=== PATIENT | female | born 2000 | race Caucasian/White ===

== ENCOUNTER 2025-08-11 07:43 | Inpatient (IN) ==
[2025-08-11] MEDS ORDERED: OXYTOCIN 30 UNITS/NSS 30 UNITS/500 ML BAG IV PRN (07:49)
[2025-08-11 08:11] LABS: Hematocrit (blood only) 35.7 % (37.0-47.0); Hemoglobin 11.9 g/dL (12.0-16.0); Mean Corpuscular Hemoglobin 26.9 pg (25.0-34.0); Mean Corpuscular Volume 80.6 fL (80.0-100.0); Platelet Count 282 K/uL (130-400); RDW Standard Deviation 42.5 fL (36.4-46.3); Red Blood Count 4.43 M/uL (4.20-5.40); White Blood Count 15.59 K/ul (4.8-10.8)
[2025-08-11] MEDS: LACTATED RINGER'S 1,000 ML IV PRN (08:20)
[2025-08-11] MEDS: PENICILLIN GK 6 MU in DEXTROSE 5% 250 ML IV STA (08:20)
--- NOTE | 2025-08-11 08:33 | History & Physical Report ---
Date of Service August 11, 2025 Assessment & Plan (1) Encounter for induction of labor: (2) Chronic hypertension: (3) Insulin controlled gestational diabetes mellitus (GDM) during : (4) Group B streptococcal infection during : Plan Patient is a 25 y/o presenting today for induction of labor. was complicated by GDM on insulin, CHTN, GBS(+), and HSV infection. Rh(+). Rubella equivocal barillas bulb placed last night pitocin pencillin for GBS(+) AROM when indicated epidural at patient's preference BG checks q1h rubella equivocal - plan for vaccination anticipate Admission and Anticipated Discharge Date Admission Date: August 11, 2025 History of Present Illness Chief Complaint: induction of labor Primary Care Provider: Spencer Virgen MD Isa Sanches is a 25 y/o at 38w 6d with an DARION 08/19/25 as determined by ultrasound who is here for induction of labor. Her was complicated by GDM on insulin, CHTN, GBS(+), and HSV infection. + contractions ; good movement External FHT and external uterine monitors used; Category I tracing; moderate FHT variability. Had regular appointments with OB. OB Labs: Blood Type O Positive 01/06/25 Antibody Screen NEGATIVE 01/06/25 Hgb 11.5 g/dL (12.0-16.0) L 07/23/25 Hct 34.2 % (37.0-47.0) L 07/23/25 MCV 81.0 fL (80.0-100.0) 07/23/25 Plt Count 296 K/uL (130-400) 07/23/25 Rubella IgG Antibody Equivocal (Immune) L 01/06/25 Treponema pallidum Ab Negative (Negative) 05/29/25 Hep Bs Antigen Negative (Negative) 01/06/25 Hepatitis C Antibody Negative (Negative) 01/06/25 HIV 1&2 Ab/P24 Ag 4thGn Negative (Negative) 01/06/25 Glucose 1 Hr 50 gm 159 mg/dl (70-130) H 03/06/25 Maternal Serum AFP 19.7 ng/mL 03/06/25 OB Optional Labs: Chlamydia trachomatis RNA Not Detected (NotDetected) 01/06/25 Neisseria gonorrhoeae RNA Not Detected (NotDetected) 01/06/25 Alpha Fetoprotein Triple Screen SEE NOTE 03/06/25 ROS: Denies fever/chills Denies shortness of breath, difficulty breathing, chest pain, palpitations, chest pressure. Denies breast pain. Denies dysuria. Denies headache or changes in vision. Allergies Allergy/AdvReac Type Severity Reaction Status Date / Time No Known Allergies Allergy Verified 08/10/25 13:10 Home Medications Medication Instructions Recorded Confirmed Type rffsonxz-hom-Xh-FA 1 mg 1 tab PO DAILY 12/30/24 08/11/25 History tablet acetone (urine) test (Ketone Urine #50 ea 03/30/25 08/10/25 Rx Test strips) blood sugar diagnostic (Accu-Chek #150 ea 03/30/25 08/10/25 Rx Guide test strips) blood-glucose meter (Accu-Chek #1 ea 03/30/25 08/10/25 Rx Guide Glucose Meter) lancets (Accu-Chek Softclix #100 ea 03/30/25 08/10/25 Rx Lancets) lancets 28 gauge (Easy Touch #100 ea 04/01/25 08/10/25 Rx Safety Lancets) insulin lispro 100 unit/mL 3 unit (0.03 mL) subcut TID #15 mL 05/12/25 08/11/25 Rx subcutaneous pen (Humalog KwikPen (U-100) Insulin) pen needle, diabetic 32 gauge x #100 ea 05/12/25 08/10/25 Rx 5/32" valacyclovir 500 mg tablet 500 mg PO BID #60 tabs 05/29/25 08/11/25 Rx acetaminophen 325 mg tablet 650 mg PO QID PRN Headache 08/11/25 08/11/25 History (Tylenol) aspirin 1 tab PO DAILY 08/11/25 08/11/25 History calcium carbonate 500 mg PO Q6 PRN Heartburn 08/11/25 08/11/25 History Past Med/Surg History Problem List (Updated 08/11/25 @ 09:43 by Rita Montano MD, FACOG) Encounter for induction of labor Group B streptococcal infection during Insulin controlled gestational diabetes mellitus (GDM) during Chronic hypertension Gestational diabetes Supervision of normal intrauterine in primigravida Surgical History S/P tonsillectomy Family History Other Cancer Diabetes Social History Smoking Status: Never smoker Do You Dip or Chew Tobacco: No; Hx Alcohol Use: No Hx Substance Use: No Preferred Language: [place] Communication Ability: Effective Retail Loss Prevention Officer Required: No Beliefs That Will Affect Care: None marital status: Single marital status details: Kendall (26) [phone] Current Living Situation: Significant Other Current Living Situation Comment: Patient lives with fob and 3 dogs. current occupational status: unemployed Feels Safe at Home: Yes Safety Concerns: Feels Safe At This Time Review of Systems Review of Systems: as above Physical Exam Physical Exam: General: Alert, oriented. No acute distress. Cardiac: Regular rate and rhythm, no murmurs/rubs/gallops. Respiratory: Clear to auscultation bilaterally a/p, no wheezes/rales rhonchi. No increased work of breathing. Symmetrical chest rise. No respiratory distress. Abdomen: gravid, soft, normal to inspection. Pelvic: Dilation 0.5 cm; Effacement 50; Station -[address] Koch Lower Extremities: No lower extremity edema or swelling. No deep calf pain. Cas's negative bilaterally Results & Data Results & Data Vital Signs (Past 12 Hours) Vital Signs Pulse BP 08/11/25 07:52 102 H 139/82 Supervising Physician Co-Signing Physician Notes 25yo at 38+wks with chtn for planned induction. She did have barillas ripening balloon last pm, has not fallen out. No rom, vb. No ctx. also c/b GDM on insulin, takes regular with meals, did eat this am and took 8u reg, last bsg 82 in am before meal per pt. Pt is gbs pos, ri, rh pos. SVE balloon in vagina cx 3-4/50/-2, efw 7-8#, pit at 1, fhts categ 1, ctx irreg. Plan arom with regular pattern, pcn for gbs pos, epidural when desires. fhts categ 1. c/w pit. bsgs q2hr in active labor.
[2025-08-11] MEDS: OXYTOCIN 30 UNITS/NSS 30 UNITS/500 ML BAG IV PRN (09:30)
[2025-08-11] MEDS ORDERED: LIDOCAINE 2% MPF LOCAL 5 ML VIAL EPI PRN (11:43)
[2025-08-11] MEDS ORDERED: NALOXONE HCL 0.4 MG/1 ML VIAL/CARP IV PRN (11:43)
[2025-08-11] MEDS ORDERED: ROPIVACAINE 0.5% PF 5 MG/ML 20 ML VIAL EPI PRN (11:43)
[2025-08-11] MEDS ORDERED: diphenhydrAMINE 50 MG/ML VIAL IV PRN (11:43)
[2025-08-11] MEDS ORDERED: NALBUPHINE HCL INJ 10 MG/ML AMP IV PRN (11:43)
[2025-08-11] MEDS ORDERED: NALOXONE HCL 1 MG in SODIUM CHLORIDE 0.9% 1,000 ML IV PRN (11:43)
--- NOTE | 2025-08-11 11:43 | Anesthesiology Consultation ---
Date of Service August 11, 2025 Assessment & Plan Chart Review Chart Review: Acceptable Risk for Labor Epidural Consults Requested medical & cardiac Pulmonary ASA ASA2 Proposed Anesthesia Anesthesia Type: Labor Epidural History Height/Weight Height: 5 ft 1 in Weight: 84.776 kg Allergies Allergy/AdvReac Type Severity Reaction Status Date / Time No Known Allergies Allergy Verified 08/10/25 13:10 Medications Home Medications Medication Instructions Recorded Confirmed Last Taken egllllow-gqk-Ab-FA 1 mg 1 tab PO DAILY 12/30/24 08/11/25 08/10/25 22:00 tablet acetone (urine) test (Ketone Urine #50 ea 03/30/25 08/10/25 Unknown Test strips) blood sugar diagnostic (Accu-Chek #150 ea 03/30/25 08/10/25 Unknown Guide test strips) blood-glucose meter (Accu-Chek #1 ea 03/30/25 08/10/25 Unknown Guide Glucose Meter) lancets (Accu-Chek Softclix #100 ea 03/30/25 08/10/25 Unknown Lancets) lancets 28 gauge (Easy Touch #100 ea 04/01/25 08/10/25 Unknown Safety Lancets) insulin lispro 100 unit/mL 3 unit (0.03 mL) subcut TID #15 mL 05/12/25 08/11/25 08/11/25 05:30 subcutaneous pen (Humalog KwikPen (U-100) Insulin) pen needle, diabetic 32 gauge x #100 ea 05/12/25 08/10/25 Unknown 32" valacyclovir 500 mg tablet 500 mg PO BID #60 tabs 05/29/25 08/11/25 08/10/25 22:00 acetaminophen 325 mg tablet 650 mg PO QID PRN Headache 08/11/25 08/11/25 08/10/25 20:00 (Tylenol) aspirin 1 tab PO DAILY 08/11/25 08/11/25 08/10/25 22:00 calcium carbonate 500 mg PO Q6 PRN Heartburn 08/11/25 08/11/25 08/10/25 22:30 Active Medications Generic Name Dose Route Start Last Admin Trade Name Freq PRN Reason Stop Dose Admin Oxytocin 30 units in 500 mls @ 7 mls/hr 08/11/25 07:49 08/11/25 11:00 Pitocin 30 Units/Nss IV 08/13/25 07:48 0.42 units/hr .Q24H PRN 7 mls/hr Labor Induction/Augmentation Titration Protocol 0.42 UNITS/HR Lactated Ringer's 1,000 mls @ 125 mls/hr 08/11/25 07:49 08/11/25 08:20 Lr IV 08/13/25 07:48 125 mls/hr .Q8H PRN Administration L&D Protocol Protocol Past Family History Family History Other Cancer Diabetes Past Surgical History Surgical History S/P tonsillectomy Social History Smoking Status: Never smoker Do You Dip or Chew Tobacco: No Hx Alcohol Use: No Hx Substance Use: No substance use type: does not use Physical Exam Vital Signs Last Vital Signs Temp 36.6 C 08/11/25 08:15 Pulse 94 H 08/11/25 11:34 Resp 18 08/11/25 08:15 BP 130/77 08/11/25 11:34 Testing Laboratory Results 08/11/25 07:58 08/11/25 08/11/25 10:32 08:29 POC Glucose 76 80
[2025-08-11] MEDS: PENICILLIN GK 3 MU in DEXTROSE 5% 100 ML IV PRN (12:00)
[2025-08-11] MEDS: LIDOCAINE 2%/EPINEPHRINE 1:200,000 20 ML PF ONE ×3 (12:02→22:23)
[2025-08-11] MEDS: fentANYL 2 MCG/ML BUPIVacaine 0.125%-NSS 100ML BAG ONE ×3 (12:05→22:24)
[2025-08-11] MEDS: SODIUM CHLORIDE 0.9% PF INJ 10 ML VIAL ONE ×3 (12:29→22:26)
[2025-08-11] MEDS: BUPIVACAINE 0.25% PF 30 ML VIAL EPI STA (12:29)
[2025-08-11] MEDS: BUPIVACAINE 0.25% PF 30 ML VIAL ONE ×3 (12:29→22:26)
[2025-08-11] MEDS: LIDOCAINE 2%/EPINEPHRINE 1:200,000 20 ML PF EPI STA (12:30)
[2025-08-11] MEDS: SODIUM CHLORIDE 0.9% PF INJ 10 ML VIAL EPI STA (12:33)
--- NOTE | 2025-08-11 12:33 | Labor Progress Brief Note ---
Date of Service August 11, 2025 Subjective now comfortable with epidural Assessment & Plan (1) Encounter for induction of labor: (2) Group B streptococcal infection during : (3) Chronic hypertension: (4) Insulin controlled gestational diabetes mellitus (GDM) during : Plan will see how arom, helps labor pattern, c/w pcn and pit. fhts categ 1. Admission and Anticipated Discharge Date Admission Date: August 11, 2025 Physical Exam Constitutional: WD/WN, vitals as above Genitourinary: Manual OB Exam: + cervical dilation (3-4cm), + cervical effacement 50%, + station -2 and + amniotic fluid (arom) clear OB Exam Monitor Tracing: + external FHT monitor used, + external uterine monitor used (q3), + category I and + normal FHT variability Results & Data Vital Signs (Past 12 Hours) Vital Signs Temp Pulse Resp BP Pulse Ox 08/11/25 12:28 89 08/11/25 12:28 113/70 08/11/25 12:27 100 08/11/25 12:27 90 08/11/25 12:22 100 08/11/25 12:22 94 H 08/11/25 12:17 100 08/11/25 12:17 94 H 08/11/25 12:13 104 H 08/11/25 12:13 138/89 08/11/25 12:12 100 08/11/25 12:12 94 H 08/11/25 12:07 100 08/11/25 12:07 100 H 08/11/25 12:07 146/88 H 08/11/25 12:02 100 08/11/25 12:02 100 H 08/11/25 12:02 137/85 08/11/25 11:57 100 08/11/25 11:57 102 H 08/11/25 11:57 145/91 H 08/11/25 11:52 100 08/11/25 11:52 100 H 08/11/25 11:47 100 08/11/25 11:47 107 H 08/11/25 11:34 94 H 08/11/25 11:34 130/77 08/11/25 10:30 88 08/11/25 10:30 133/76 08/11/25 09:31 93 H 08/11/25 09:31 128/82 08/11/25 08:15 97.9 F 102 H 18 139/82 08/11/25 07:52 97.9 F 102 H 16 139/82 Coding Level of Care Code None Diagnoses Encounter for induction of labor Z34.90 Group B streptococcal infection during O98.819; B95.1 Chronic hypertension I10 Insulin controlled gestational diabetes mellitus (GDM) during O24.414
[2025-08-11] MEDS ORDERED: NURSING L&D Epidural Breakthrough Pain Update ONE ×2 (14:38→16:08)
[2025-08-11] MEDS ORDERED: LIDOCAINE 2%/EPINEPHRINE 1:200,000 20 ML PF ONE (16:03)
--- NOTE | 2025-08-11 16:13 | Anesthesia Procedure Note ---
Date of Service August 11, 2025 Anesthesia Epidural Re-Dose Vital Signs Temp Pulse Resp BP Pulse Ox 36.9 C 101 H 18 141/95 H 100 08/11/25 14:45 08/11/25 16:10 08/11/25 14:45 08/11/25 16:10 08/11/25 16:07 Notes Pain Intensity: 0 Dilatation (cm): 3.0 Effacement (%): 50 Called by nursing to evaluate epidural as the patient is having increased pain. The epidural was re-dosed with the following medications (all medications via epidural route) after negative aspiration of the epidural catheter for CSF/HEME. 2% Lidocaine via epidural After Epidural Re-Dose Mental Status: alert / awake / arousable and participated in evaluation Pain: see Notes below Airway Patency, RR, SpO2: stable & adequate BP & HR: stable & adequate Additional Notes: will replace if no improvement.
[2025-08-11] MEDS: fentANYL 2 MCG/ML BUPIVacaine 0.125%-NSS 100ML BAG EPI PRN (17:40)
[2025-08-11] MEDS: BUTORPHANOL TARTRATE 1 MG/ML VIAL IV ONE (21:38)
--- NOTE | 2025-08-11 21:51 | Labor Progress Brief Note ---
Date of Service August 11, 2025 Subjective late entry, seen about 1hr ago. pt not comfortable, epidural not working, apparently pt uncertain how to proceed, was given options by anesthesia. Assessment & Plan (1) 38 weeks gestation of : (2) Chronic hypertension: (3) Encounter for induction of labor: (4) Insulin controlled gestational diabetes mellitus (GDM) during : (5) Group B streptococcal infection during : Plan Discussed with pt need to evaluate adequacy of labor pattern to guide pitocin and to determine if cx expected to progress. She is in pain but reluctant to have epidural replaced as suggested by anesth for several reasons. we talked thru those reasons as well as her alternatives. she wants to try to for normal delivery and at this point nothing to say this will not happen and so ultimately feels needs to try new epidural. discussed option to stop pit for 30min and restart at 1/2 in order to allow ctx to space to aid in her positioning. Also stadol 1mg now to help her relax as well as she is nervous about another epidural. ultimately she agrees to both. fhts categ 1. she does want to proceed in this manner. anesthesia ready to retry epidural. Admission and Anticipated Discharge Date Admission Date: August 11, 2025 Physical Exam Constitutional: WD/WN, vitals as above Genitourinary: Manual OB Exam: + cervical dilation 5 cm, + cervical effacement (75%) and + station -1 OB Exam Monitor Tracing: + external FHT monitor used, + external uterine monitor used, + intra-uterine pressure catheter used (IUPC placed, mvu's adequate, pit at 27), + category I and + normal FHT variability Results & Data Vital Signs (Past 12 Hours) Vital Signs Temp Pulse Resp BP Pulse Ox 08/11/25 21:42 97 08/11/25 21:42 111 H 08/11/25 21:42 136/81 08/11/25 21:37 99 08/11/25 21:37 97 H 08/11/25 21:32 98 08/11/25 21:32 100 H 08/11/25 21:27 98 08/11/25 21:27 103 H 08/11/25 21:27 107 H 08/11/25 21:27 146/78 H 08/11/25 21:22 98 08/11/25 21:22 98 H 08/11/25 21:17 98 08/11/25 21:17 104 H 08/11/25 21:13 105 H 08/11/25 21:13 149/95 H 08/11/25 21:12 98 08/11/25 21:12 103 H 08/11/25 21:07 98 08/11/25 21:07 92 H 08/11/25 21:02 99 08/11/25 21:02 104 H 08/11/25 20:57 98 08/11/25 20:57 101 H 08/11/25 20:57 105 H 08/11/25 20:57 141/84 H 08/11/25 20:52 98 08/11/25 20:52 92 H 08/11/25 20:47 98 08/11/25 20:47 107 H 08/11/25 20:42 99 08/11/25 20:42 101 H 08/11/25 20:42 112 H 08/11/25 20:42 137/81 08/11/25 20:38 92 08/11/25 20:38 118 H 08/11/25 20:37 97 08/11/25 20:37 124 H 08/11/25 20:32 99 08/11/25 20:32 90 08/11/25 20:27 99 08/11/25 20:27 93 H 08/11/25 20:27 98 H 08/11/25 20:27 122/73 08/11/25 20:22 97 08/11/25 20:22 95 H 08/11/25 20:17 100 08/11/25 20:17 96 H 08/11/25 20:12 100 08/11/25 20:12 88 08/11/25 20:12 127/93 08/11/25 20:07 100 08/11/25 20:07 104 H 08/11/25 20:02 98 08/11/25 20:02 89 08/11/25 19:57 99 08/11/25 19:57 98 H 08/11/25 19:57 137/91 08/11/25 19:52 98 08/11/25 19:52 94 H 08/11/25 19:47 98 08/11/25 19:47 95 H 08/11/25 19:44 98 H 08/11/25 19:44 125/91 08/11/25 19:42 99 08/11/25 19:42 97 H 08/11/25 19:37 100 08/11/25 19:37 103 H 08/11/25 19:32 98 08/11/25 19:32 93 H 08/11/25 19:27 97 08/11/25 19:27 92 H 08/11/25 19:27 130/76 08/11/25 19:22 98 08/11/25 19:22 83 08/11/25 19:21 98.4 F 18 08/11/25 19:17 98 08/11/25 19:17 92 H 08/11/25 19:12 98 08/11/25 19:12 91 H 08/11/25 19:12 91 H 08/11/25 19:12 136/83 08/11/25 19:07 99 08/11/25 19:07 90 08/11/25 19:02 99 08/11/25 19:02 91 H 08/11/25 18:58 98 H 08/11/25 18:58 155/85 H 08/11/25 18:57 99 08/11/25 18:57 91 H 08/11/25 18:52 98 08/11/25 18:52 91 H 08/11/25 18:47 98 08/11/25 18:47 98 H 08/11/25 18:42 98 08/11/25 18:42 96 H 08/11/25 18:37 96 08/11/25 18:37 109 H 08/11/25 18:32 100 08/11/25 18:32 98 H 08/11/25 18:29 97 H 08/11/25 18:29 119/69 08/11/25 18:27 99 08/11/25 18:27 96 H 08/11/25 18:22 98 08/11/25 18:22 90 08/11/25 18:17 99 08/11/25 18:17 92 H 08/11/25 18:12 100 08/11/25 18:12 86 08/11/25 18:12 120/73 08/11/25 18:07 100 08/11/25 18:07 95 H 08/11/25 18:02 99 08/11/25 18:02 91 H 08/11/25 17:59 96 H 08/11/25 17:59 128/73 08/11/25 17:57 98 08/11/25 17:57 91 H 08/11/25 17:52 98 08/11/25 17:52 95 H 08/11/25 17:47 99 08/11/25 17:47 85 08/11/25 17:44 87 08/11/25 17:44 109/63 08/11/25 17:42 99 08/11/25 17:42 78 08/11/25 17:37 100 08/11/25 17:37 88 08/11/25 17:32 99 08/11/25 17:32 84 08/11/25 17:27 100 08/11/25 17:27 90 08/11/25 17:27 90 08/11/25 17:27 114/71 08/11/25 17:22 100 08/11/25 17:22 88 08/11/25 17:17 100 08/11/25 17:17 86 08/11/25 17:13 90 08/11/25 17:13 106/65 08/11/25 17:12 100 08/11/25 17:12 93 H 08/11/25 17:07 100 08/11/25 17:07 86 08/11/25 17:02 100 08/11/25 17:02 91 H 08/11/25 16:57 100 08/11/25 16:57 95 H 08/11/25 16:57 96 H 08/11/25 16:57 120/60 08/11/25 16:52 100 08/11/25 16:52 91 H 08/11/25 16:47 100 08/11/25 16:47 92 H 08/11/25 16:42 99 08/11/25 16:42 86 08/11/25 16:42 86 08/11/25 16:42 110/62 08/11/25 16:37 98 08/11/25 16:37 85 08/11/25 16:32 97 08/11/25 16:32 91 H 08/11/25 16:27 99 08/11/25 16:27 88 08/11/25 16:27 121/79 08/11/25 16:22 98 08/11/25 16:22 91 H 08/11/25 16:21 90 08/11/25 16:21 134/74 08/11/25 16:17 100 08/11/25 16:17 89 08/11/25 16:16 87 08/11/25 16:16 147/87 H 08/11/25 16:12 100 08/11/25 16:12 98 H 08/11/25 16:10 101 H 08/11/25 16:10 141/95 H 08/11/25 16:08 94 H 08/11/25 16:08 137/80 08/11/25 16:07 100 08/11/25 16:07 84 08/11/25 16:07 90 08/11/25 16:07 149/89 H 08/11/25 16:02 100 08/11/25 16:02 89 08/11/25 15:59 81 08/11/25 15:59 155/90 H 08/11/25 15:57 99 08/11/25 15:57 98 H 08/11/25 15:52 100 08/11/25 15:52 102 H 08/11/25 15:52 101 H 08/11/25 15:52 164/95 H 08/11/25 15:47 100 08/11/25 15:47 93 H 08/11/25 15:44 95 H 08/11/25 15:44 186/90 H 08/11/25 15:42 100 08/11/25 15:42 96 H 08/11/25 15:37 100 08/11/25 15:37 93 H 08/11/25 15:32 100 08/11/25 15:32 98 H 08/11/25 15:28 93 H 08/11/25 15:28 143/84 H 08/11/25 15:27 100 08/11/25 15:27 94 H 08/11/25 15:22 99 08/11/25 15:22 91 H 08/11/25 15:17 98 08/11/25 15:17 93 H 08/11/25 15:14 88 08/11/25 15:14 136/80 08/11/25 15:12 98 08/11/25 15:12 86 08/11/25 15:07 99 08/11/25 15:07 91 H 08/11/25 15:02 100 08/11/25 15:02 86 08/11/25 14:59 100 H 08/11/25 14:59 133/88 08/11/25 14:57 99 08/11/25 14:57 91 H 08/11/25 14:52 99 08/11/25 14:52 95 H 08/11/25 14:47 97 08/11/25 14:47 89 08/11/25 14:45 18 08/11/25 14:45 98.4 F 18 08/11/25 14:45 87 08/11/25 14:45 134/73 08/11/25 14:42 98 08/11/25 14:42 78 08/11/25 14:37 99 08/11/25 14:37 79 08/11/25 14:32 99 08/11/25 14:32 88 08/11/25 14:28 85 08/11/25 14:28 125/73 08/11/25 14:27 100 08/11/25 14:27 82 08/11/25 14:22 99 08/11/25 14:22 89 08/11/25 14:17 98 08/11/25 14:17 84 08/11/25 14:15 81 08/11/25 14:15 120/72 08/11/25 14:12 98 08/11/25 14:12 83 08/11/25 14:07 98 08/11/25 14:07 80 08/11/25 14:02 98 08/11/25 14:02 80 08/11/25 13:59 80 08/11/25 13:59 128/73 08/11/25 13:57 98 08/11/25 13:57 82 08/11/25 13:52 99 08/11/25 13:52 79 08/11/25 13:47 99 08/11/25 13:47 85 08/11/25 13:44 84 08/11/25 13:44 126/78 08/11/25 13:42 100 08/11/25 13:42 89 08/11/25 13:37 100 08/11/25 13:37 79 08/11/25 13:35 18 08/11/25 13:35 98.4 F 18 08/11/25 13:32 100 08/11/25 13:32 77 08/11/25 13:28 83 08/11/25 13:28 137/84 08/11/25 13:27 100 08/11/25 13:27 78 08/11/25 13:22 100 08/11/25 13:22 79 08/11/25 13:17 100 08/11/25 13:17 79 08/11/25 13:13 81 08/11/25 13:13 105/63 08/11/25 13:12 100 08/11/25 13:12 85 08/11/25 13:07 100 08/11/25 13:07 82 08/11/25 13:02 100 08/11/25 13:02 89 08/11/25 12:58 88 08/11/25 12:58 110/68 08/11/25 12:57 100 08/11/25 12:57 87 08/11/25 12:52 100 08/11/25 12:52 85 08/11/25 12:47 100 08/11/25 12:47 85 08/11/25 12:44 85 08/11/25 12:44 114/75 08/11/25 12:42 100 08/11/25 12:42 86 08/11/25 12:37 100 08/11/25 12:37 83 08/11/25 12:32 100 08/11/25 12:32 88 08/11/25 12:28 89 08/11/25 12:28 113/70 08/11/25 12:27 16 08/11/25 12:27 98.4 F 16 08/11/25 12:27 100 08/11/25 12:27 90 08/11/25 12:22 100 08/11/25 12:22 94 H 08/11/25 12:17 100 08/11/25 12:17 94 H 08/11/25 12:13 104 H 08/11/25 12:13 138/89 08/11/25 12:12 100 08/11/25 12:12 94 H 08/11/25 12:07 100 08/11/25 12:07 100 H 08/11/25 12:07 146/88 H 08/11/25 12:02 100 08/11/25 12:02 100 H 08/11/25 12:02 137/85 08/11/25 11:57 100 08/11/25 11:57 102 H 08/11/25 11:57 145/91 H 08/11/25 11:52 100 08/11/25 11:52 100 H 08/11/25 11:47 100 08/11/25 11:47 107 H 08/11/25 11:34 94 H 08/11/25 11:34 130/77 08/11/25 10:30 88 08/11/25 10:30 133/76 Coding Level of Care Code None Diagnoses 38 weeks gestation of Z3A.38 Chronic hypertension I10 Encounter for induction of labor Z34.90 Insulin controlled gestational diabetes mellitus (GDM) during O24.414 Group B streptococcal infection during O98.819; B95.1
--- NOTE | 2025-08-11 22:02 | Communication Note ---
Date of Service: August 11, 2025 redo epidural catheter
[2025-08-11] MEDS: BUTORPHANOL TARTRATE 1 MG/ML VIAL ONE (22:28)
[2025-08-12] MEDS ORDERED: DexMEDEtomidine HCL IV 100 MCG/ML VIAL IV ONE (03:52)
[2025-08-12] MEDS ORDERED: SODIUM CHLORIDE 0.9% PF INJ 10 ML VIAL ONE (03:52)
[2025-08-12] MEDS ORDERED: LIDOCAINE 2%/EPINEPHRINE 1:200,000 20 ML PF ONE (04:02)
--- NOTE | 2025-08-12 04:20 | Anesthesia Procedure Note ---
Date of Service August 12, 2025 Anesthesia Epidural Re-Dose Vital Signs Temp Pulse Resp BP Pulse Ox 37.1 C 93 H 18 102/56 L 95 08/12/25 01:45 08/12/25 04:15 08/12/25 00:00 08/12/25 04:15 08/12/25 04:12 Notes Pain Intensity: 10 Dilatation (cm): 6.0 Effacement (%): 70 Called by nursing to evaluate epidural as the patient is having increased pain L>R. Epidural catheter remains at depth of placement. The epidural was re-dosed with the following medications (all medications via epidural route) after negative aspiration of the epidural catheter for CSF/HEME. 3ml 2% Lidocaine and 20mcg precedex via epidural After Epidural Re-Dose Mental Status: alert / awake / arousable and participated in evaluation Pain: improving with treatment Airway Patency, RR, SpO2: stable & adequate BP & HR: stable & adequate
[2025-08-12] MEDS ORDERED: NURSING L&D Epidural Breakthrough Pain Update ONE (05:24)
[2025-08-12] MEDS: SODIUM CHLORIDE 0.9% PF INJ 10 ML VIAL EPI PRN (07:14)
[2025-08-12] MEDS: BUPIVACAINE 0.25% PF 30 ML VIAL EPI PRN (07:14)
--- NOTE | 2025-08-12 07:22 | Labor Progress Brief Note ---
Date of Service August 12, 2025 Subjective late entry, seen at 640am. comfortable with epidural, got some sleep. feels pressure. barilals in place. Assessment & Plan (1) 38 weeks gestation of : (2) Chronic hypertension: (3) Encounter for induction of labor: (4) Insulin controlled gestational diabetes mellitus (GDM) during : (5) Group B streptococcal infection during : Plan some cx change, now at pit max, given cx change would not adjust, but reeval for change ongoing. fhts categ 1. has received multiple dose of pcn for gbs pos. Admission and Anticipated Discharge Date Admission Date: August 11, 2025 Physical Exam Constitutional: WD/WN, vitals as above Genitourinary: Manual OB Exam: + cervical dilation 7 cm, + cervical effacement 100% and + station 0 OB Exam Monitor Tracing: + external FHT monitor used, + intra-uterine pressure catheter used (inadeq mvus, pit at 30, catheter in place), + category I and + normal FHT variability Results & Data Vital Signs (Past 12 Hours) Vital Signs Temp Pulse Resp BP Pulse Ox 08/12/25 07:17 102 H 99 08/12/25 07:16 22 08/12/25 07:16 98.4 F 22 08/12/25 07:12 101 H 98 08/12/25 07:07 97 H 97 08/12/25 07:05 100 H 128/73 08/12/25 07:02 100 H 97 08/12/25 06:57 95 H 98 08/12/25 06:52 96 H 97 08/12/25 06:49 98 H 129/67 08/12/25 06:47 100 H 98 08/12/25 06:42 92 H 98 08/12/25 06:37 94 H 98 08/12/25 06:33 85 119/69 08/12/25 06:32 83 98 08/12/25 06:27 110 H 99 08/12/25 06:22 105 H 99 08/12/25 06:19 99 H 132/81 08/12/25 06:17 102 H 98 08/12/25 06:12 98 H 97 08/12/25 06:07 87 98 08/12/25 06:06 18 08/12/25 06:06 98.4 F 18 08/12/25 06:04 101 H 133/77 08/12/25 06:02 98 H 98 08/12/25 05:57 80 95 08/12/25 05:52 81 95 08/12/25 05:49 83 102/53 L 08/12/25 05:47 80 96 08/12/25 05:42 81 96 08/12/25 05:37 74 96 08/12/25 05:33 85 94/52 L 08/12/25 05:32 82 96 08/12/25 05:27 78 96 08/12/25 05:22 90 96 08/12/25 05:18 80 92/47 L 08/12/25 05:17 80 95 08/12/25 05:12 80 95 08/12/25 05:07 80 95 08/12/25 05:04 82 96/46 L 08/12/25 05:02 78 95 08/12/25 04:57 80 95 08/12/25 04:52 80 95 08/12/25 04:47 80 96 08/12/25 04:46 83 96/46 L 08/12/25 04:42 85 92/53 L 96 08/12/25 04:38 89 93/50 L 08/12/25 04:37 81 96 08/12/25 04:32 95 08/12/25 04:32 85 08/12/25 04:32 86 91/52 L 08/12/25 04:27 89 96 08/12/25 04:26 93 H 96/55 L 08/12/25 04:22 90 96 08/12/25 04:21 90 95/62 L 08/12/25 04:17 91 H 96 08/12/25 04:15 93 H 102/56 L 08/12/25 04:14 97 H 106/55 L 08/12/25 04:12 96 H 95 08/12/25 04:09 102 H 119/74 08/12/25 04:07 100 H 96 08/12/25 04:02 103 H 97 08/12/25 03:57 96 H 98 08/12/25 03:54 98 H 144/78 H 08/12/25 03:52 99 H 98 08/12/25 03:47 103 H 97 08/12/25 03:42 101 H 97 08/12/25 03:40 100 H 126/80 08/12/25 03:37 93 H 97 08/12/25 03:32 98 H 96 08/12/25 03:27 99 H 100 08/12/25 03:25 104 H 140/68 08/12/25 03:22 102 H 95 08/12/25 03:19 99 H 94 08/12/25 03:17 104 H 99 08/12/25 03:12 103 H 98 08/12/25 03:11 106 H 93 08/12/25 03:09 101 H 127/86 08/12/25 03:07 103 H 97 08/12/25 03:02 92 H 98 08/12/25 02:57 92 H 98 08/12/25 02:55 105 H 140/86 08/12/25 02:52 100 H 98 08/12/25 02:47 102 H 98 08/12/25 02:42 100 H 98 08/12/25 02:39 107 H 146/91 H 08/12/25 02:37 103 H 99 08/12/25 02:32 104 H 99 08/12/25 02:27 99 H 97 08/12/25 02:25 103 H 137/88 08/12/25 02:22 105 H 99 08/12/25 02:17 95 H 99 08/12/25 02:12 100 H 97 08/12/25 02:09 100 H 128/85 08/12/25 02:07 98 H 97 08/12/25 02:02 101 H 98 08/12/25 01:57 91 H 97 08/12/25 01:55 96 H 122/80 08/12/25 01:52 92 H 96 08/12/25 01:47 91 H 96 08/12/25 01:45 98.8 F 08/12/25 01:42 97 H 96 08/12/25 01:39 97 H 120/70 08/12/25 01:37 95 H 97 08/12/25 01:32 91 H 97 08/12/25 01:27 86 97 08/12/25 01:22 88 97 08/12/25 01:17 94 H 97 08/12/25 01:12 93 H 97 08/12/25 01:07 90 96 08/12/25 01:02 87 97 08/12/25 00:57 78 95 08/12/25 00:55 83 104/55 L 08/12/25 00:54 85 94 08/12/25 00:52 82 95 08/12/25 00:47 86 95 08/12/25 00:42 90 96 08/12/25 00:39 93 H 124/68 08/12/25 00:37 93 H 98 08/12/25 00:32 94 H 98 08/12/25 00:27 92 H 98 08/12/25 00:24 95 H 131/83 08/12/25 00:22 103 H 98 08/12/25 00:17 86 98 08/12/25 00:12 90 97 08/12/25 00:09 93 H 117/76 08/12/25 00:07 93 H 98 08/12/25 00:02 86 97 08/12/25 00:00 18 08/12/25 00:00 98.1 F 18 08/11/25 23:57 98 08/11/25 23:57 89 08/11/25 23:54 94 H 08/11/25 23:54 106/70 08/11/25 23:52 97 08/11/25 23:52 91 H 08/11/25 23:47 97 08/11/25 23:47 82 08/11/25 23:42 98 08/11/25 23:42 89 08/11/25 23:39 96 H 08/11/25 23:39 110/70 08/11/25 23:37 97 08/11/25 23:37 89 08/11/25 23:32 97 08/11/25 23:32 90 08/11/25 23:27 97 08/11/25 23:27 91 H 08/11/25 23:24 93 H 08/11/25 23:24 107/67 08/11/25 23:22 97 08/11/25 23:22 85 08/11/25 23:17 97 08/11/25 23:17 86 08/11/25 23:12 97 08/11/25 23:12 93 H 08/11/25 23:10 97 H 08/11/25 23:10 111/74 08/11/25 23:07 98 08/11/25 23:07 92 H 08/11/25 23:02 98 08/11/25 23:02 104 H 12/02/25 22:57 100 08/11/25 22:57 101 H 08/11/25 22:54 105 H 08/11/25 22:54 115/73 08/11/25 22:52 100 08/11/25 22:52 103 H 08/11/25 22:47 98 08/11/25 22:47 106 H 08/11/25 22:42 99 08/11/25 22:42 112 H 08/11/25 22:40 107 H 08/11/25 22:40 112/75 08/11/25 22:37 98 08/11/25 22:37 101 H 08/11/25 22:32 97 08/11/25 22:32 101 H 08/11/25 22:27 97 08/11/25 22:27 97 H 08/11/25 22:22 97 08/11/25 22:22 97 H 08/11/25 22:22 115/64 08/11/25 22:20 100 H 08/11/25 22:20 118/67 08/11/25 22:18 98 H 08/11/25 22:18 121/70 08/11/25 22:17 97 08/11/25 22:17 97 H 08/11/25 22:17 106 H 08/11/25 22:17 119/69 08/11/25 22:14 99 H 08/11/25 22:14 133/72 08/11/25 22:12 98 08/11/25 22:12 102 H 08/11/25 22:12 121/69 08/11/25 22:10 103 H 08/11/25 22:10 134/67 08/11/25 22:08 104 H 08/11/25 22:08 137/69 08/11/25 22:07 97 08/11/25 22:07 108 H 08/11/25 22:06 105 H 08/11/25 22:06 123/65 08/11/25 22:05 109 H 08/11/25 22:05 127/69 08/11/25 22:03 111 H 08/11/25 22:03 111/65 08/11/25 22:02 98 08/11/25 22:02 102 H 08/11/25 22:01 109 H 08/11/25 22:01 124/61 08/11/25 21:58 112 H 08/11/25 21:58 134/77 08/11/25 21:57 95 08/11/25 21:57 112 H 08/11/25 21:57 111 H 08/11/25 21:57 134/70 08/11/25 21:54 110 H 08/11/25 21:54 136/71 08/11/25 21:52 97 08/11/25 21:52 103 H 08/11/25 21:47 96 08/11/25 21:47 98 H 08/11/25 21:42 97 08/11/25 21:42 111 H 08/11/25 21:42 136/81 08/11/25 21:37 99 08/11/25 21:37 97 H 08/11/25 21:32 98 08/11/25 21:32 100 H 08/11/25 21:27 98 08/11/25 21:27 103 H 08/11/25 21:27 107 H 08/11/25 21:27 146/78 H 08/11/25 21:22 98 08/11/25 21:22 98 H 08/11/25 21:17 98 08/11/25 21:17 104 H 08/11/25 21:13 105 H 08/11/25 21:13 149/95 H 08/11/25 21:12 98 08/11/25 21:12 103 H 08/11/25 21:07 98 08/11/25 21:07 92 H 08/11/25 21:02 99 08/11/25 21:02 104 H 08/11/25 20:57 98 08/11/25 20:57 101 H 08/11/25 20:57 105 H 08/11/25 20:57 141/84 H 08/11/25 20:52 98 08/11/25 20:52 92 H 08/11/25 20:47 98 08/11/25 20:47 107 H 08/11/25 20:42 99 08/11/25 20:42 101 H 08/11/25 20:42 112 H 08/11/25 20:42 137/81 08/11/25 20:38 92 08/11/25 20:38 118 H 08/11/25 20:37 97 08/11/25 20:37 124 H 08/11/25 20:32 99 08/11/25 20:32 90 08/11/25 20:27 99 08/11/25 20:27 93 H 08/11/25 20:27 98 H 08/11/25 20:27 122/73 08/11/25 20:22 97 08/11/25 20:22 95 H 08/11/25 20:17 100 08/11/25 20:17 96 H 08/11/25 20:12 100 08/11/25 20:12 88 08/11/25 20:12 127/93 08/11/25 20:07 100 08/11/25 20:07 104 H 08/11/25 20:02 98 08/11/25 20:02 89 08/11/25 19:57 99 08/11/25 19:57 98 H 08/11/25 19:57 137/91 08/11/25 19:52 98 08/11/25 19:52 94 H 08/11/25 19:47 98 08/11/25 19:47 95 H 08/11/25 19:44 98 H 08/11/25 19:44 125/91 08/11/25 19:42 99 08/11/25 19:42 97 H 08/11/25 19:37 100 08/11/25 19:37 103 H 08/11/25 19:32 98 08/11/25 19:32 93 H 08/11/25 19:27 97 08/11/25 19:27 92 H 08/11/25 19:27 130/76 08/11/25 19:22 98 08/11/25 19:22 83 08/11/25 19:21 98.4 F 18 Coding Level of Care Code None Diagnoses 38 weeks gestation of Z3A.38 Chronic hypertension I10 Encounter for induction of labor Z34.90 Insulin controlled gestational diabetes mellitus (GDM) during O24.414 Group B streptococcal infection during O98.819; B95.1
--- NOTE | 2025-08-12 07:23 | Anesthesia Procedure Note ---
Date of Service August 12, 2025 Anesthesia Epidural Re-Dose Vital Signs Temp Pulse Resp BP Pulse Ox 36.9 C 101 H 22 134/101 H 99 08/12/25 07:16 08/12/25 07:19 08/12/25 07:16 08/12/25 07:19 08/12/25 07:17 Notes Pain Intensity: 7 Dilatation (cm): 7.0 Effacement (%): 100 After Epidural Re-Dose Mental Status: alert / awake / arousable Pain: see Notes below Airway Patency, RR, SpO2: stable & adequate BP & HR: stable & adequate Additional Notes: @ 0714, pt epidural bolused w/ 12 ml 0.17% bupivacaine + 100 mcgs fentanyl using incremental aspiration and injections w/o incident.
--- NOTE | 2025-08-12 08:17 | Labor Progress Brief Note ---
Date of Service August 12, 2025 Subjective Patient feeling lots of pressure, urge to push. FHT Cat 1 [place] Q 2 SVE 10/100/+2 Will start pushing. Assessment & Plan Admission and Anticipated Discharge Date Admission Date: August 11, 2025 Results & Data Vital Signs (Past 12 Hours) Vital Signs Temp Pulse Resp BP Pulse Ox 08/12/25 08:12 106 H 100 08/12/25 08:07 108 H 100 08/12/25 08:03 100 H 139/96 08/12/25 08:02 110 H 100 08/12/25 07:57 103 H 99 08/12/25 07:52 104 H 99 08/12/25 07:47 110 H 99 08/12/25 07:42 105 H 99 08/12/25 07:37 102 H 100 08/12/25 07:34 93 H 132/87 08/12/25 07:32 99 H 97 08/12/25 07:27 98 H 100 08/12/25 07:25 100 H 135/87 08/12/25 07:22 97 08/12/25 07:22 96 H 08/12/25 07:22 96 H 131/83 08/12/25 07:19 101 H 134/101 H 08/12/25 07:17 102 H 99 08/12/25 07:16 22 08/12/25 07:16 36.9 C 22 08/12/25 07:12 101 H 98 08/12/25 07:07 97 H 97 08/12/25 07:05 100 H 128/73 08/12/25 07:02 100 H 97 08/12/25 06:57 95 H 98 08/12/25 06:52 96 H 97 08/12/25 06:49 98 H 129/67 08/12/25 06:47 100 H 98 08/12/25 06:42 92 H 98 08/12/25 06:37 94 H 98 08/12/25 06:33 85 119/69 08/12/25 06:32 83 98 08/12/25 06:27 110 H 99 08/12/25 06:22 105 H 99 08/12/25 06:19 99 H 132/81 08/12/25 06:17 102 H 98 08/12/25 06:12 98 H 97 08/12/25 06:07 87 98 08/12/25 06:06 18 08/12/25 06:06 36.9 C 18 08/12/25 06:04 101 H 133/77 08/12/25 06:02 98 H 98 08/12/25 05:57 80 95 08/12/25 05:52 81 95 08/12/25 05:49 83 102/53 L 08/12/25 05:47 80 96 08/12/25 05:42 81 96 08/12/25 05:37 74 96 08/12/25 05:33 85 94/52 L 08/12/25 05:32 82 96 08/12/25 05:27 78 96 08/12/25 05:22 90 96 08/12/25 05:18 80 92/47 L 08/12/25 05:17 80 95 08/12/25 05:12 80 95 08/12/25 05:07 80 95 08/12/25 05:04 82 96/46 L 08/12/25 05:02 78 95 08/12/25 04:57 80 95 08/12/25 04:52 80 95 08/12/25 04:47 80 96 08/12/25 04:46 83 96/46 L 08/12/25 04:42 85 92/53 L 96 08/12/25 04:38 89 93/50 L 08/12/25 04:37 81 96 08/12/25 04:32 95 08/12/25 04:32 85 08/12/25 04:32 86 91/52 L 08/12/25 04:27 89 96 08/12/25 04:26 93 H 96/55 L 08/12/25 04:22 90 96 08/12/25 04:21 90 95/62 L 08/12/25 04:17 91 H 96 08/12/25 04:15 93 H 102/56 L 08/12/25 04:14 97 H 106/55 L 08/12/25 04:12 96 H 95 08/12/25 04:09 102 H 119/74 08/12/25 04:07 100 H 96 08/12/25 04:02 103 H 97 08/12/25 03:57 96 H 98 08/12/25 03:54 98 H 144/78 H 08/12/25 03:52 99 H 98 08/12/25 03:47 103 H 97 08/12/25 03:42 101 H 97 08/12/25 03:40 100 H 126/80 08/12/25 03:37 93 H 97 08/12/25 03:32 98 H 96 08/12/25 03:27 99 H 100 08/12/25 03:25 104 H 140/68 08/12/25 03:22 102 H 95 08/12/25 03:19 99 H 94 08/12/25 03:17 104 H 99 08/12/25 03:12 103 H 98 08/12/25 03:11 106 H 93 08/12/25 03:09 101 H 127/86 08/12/25 03:07 103 H 97 08/12/25 03:02 92 H 98 08/12/25 02:57 92 H 98 08/12/25 02:55 105 H 140/86 08/12/25 02:52 100 H 98 08/12/25 02:47 102 H 98 08/12/25 02:42 100 H 98 08/12/25 02:39 107 H 146/91 H 08/12/25 02:37 103 H 99 08/12/25 02:32 104 H 99 08/12/25 02:27 99 H 97 08/12/25 02:25 103 H 137/88 08/12/25 02:22 105 H 99 08/12/25 02:17 95 H 99 08/12/25 02:12 100 H 97 08/12/25 02:09 100 H 128/85 08/12/25 02:07 98 H 97 08/12/25 02:02 101 H 98 08/12/25 01:57 91 H 97 08/12/25 01:55 96 H 122/80 08/12/25 01:52 92 H 96 08/12/25 01:47 91 H 96 08/12/25 01:45 37.1 C 08/12/25 01:42 97 H 96 08/12/25 01:39 97 H 120/70 08/12/25 01:37 95 H 97 08/12/25 01:32 91 H 97 08/12/25 01:27 86 97 08/12/25 01:22 88 97 08/12/25 01:17 94 H 97 08/12/25 01:12 93 H 97 08/12/25 01:07 90 96 08/12/25 01:02 87 97 08/12/25 00:57 78 95 08/12/25 00:55 83 104/55 L 08/12/25 00:54 85 94 08/12/25 00:52 82 95 08/12/25 00:47 86 95 08/12/25 00:42 90 96 08/12/25 00:39 93 H 124/68 08/12/25 00:37 93 H 98 08/12/25 00:32 94 H 98 08/12/25 00:27 92 H 98 08/12/25 00:24 95 H 131/83 08/12/25 00:22 103 H 98 08/12/25 00:17 86 98 08/12/25 00:12 90 97 08/12/25 00:09 93 H 117/76 08/12/25 00:07 93 H 98 08/12/25 00:02 86 97 08/12/25 00:00 18 08/12/25 00:00 36.7 C 18 08/11/25 23:57 98 08/11/25 23:57 89 08/11/25 23:54 94 H 08/11/25 23:54 106/70 08/11/25 23:52 97 08/11/25 23:52 91 H 08/11/25 23:47 97 08/11/25 23:47 82 08/11/25 23:42 98 08/11/25 23:42 89 08/11/25 23:39 96 H 08/11/25 23:39 110/70 08/11/25 23:37 97 08/11/25 23:37 89 08/11/25 23:32 97 08/11/25 23:32 90 08/11/25 23:27 97 08/11/25 23:27 91 H 08/11/25 23:24 93 H 08/11/25 23:24 107/67 08/11/25 23:22 97 08/11/25 23:22 85 08/11/25 23:17 97 08/11/25 23:17 86 08/11/25 23:12 97 08/11/25 23:12 93 H 08/11/25 23:10 97 H 08/11/25 23:10 111/74 08/11/25 23:07 98 08/11/25 23:07 92 H 08/11/25 23:02 98 08/11/25 23:02 104 H 08/11/25 22:57 100 08/11/25 22:57 101 H 08/11/25 22:54 105 H 08/11/25 22:54 115/73 08/11/25 22:52 100 08/11/25 22:52 103 H 08/11/25 22:47 98 08/11/25 22:47 106 H 08/11/25 22:42 99 08/11/25 22:42 112 H 08/11/25 22:40 107 H 08/11/25 22:40 112/75 08/11/25 22:37 98 08/11/25 22:37 101 H 08/11/25 22:32 97 08/11/25 22:32 101 H 08/11/25 22:27 97 08/11/25 22:27 97 H 08/11/25 22:22 97 08/11/25 22:22 97 H 08/11/25 22:22 115/64 08/11/25 22:20 100 H 08/11/25 22:20 118/67 08/11/25 22:18 98 H 08/11/25 22:18 121/70 08/11/25 22:17 97 08/11/25 22:17 97 H 08/11/25 22:17 106 H 08/11/25 22:17 119/69 08/11/25 22:14 99 H 08/11/25 22:14 133/72 08/11/25 22:12 98 08/11/25 22:12 102 H 08/11/25 22:12 121/69 08/11/25 22:10 103 H 08/11/25 22:10 134/67 08/11/25 22:08 104 H 08/11/25 22:08 137/69 08/11/25 22:07 97 08/11/25 22:07 108 H 08/11/25 22:06 105 H 08/11/25 22:06 123/65 08/11/25 22:05 109 H 08/11/25 22:05 127/69 08/11/25 22:03 111 H 08/11/25 22:03 111/65 08/11/25 22:02 98 08/11/25 22:02 102 H 08/11/25 22:01 109 H 08/11/25 22:01 124/61 08/11/25 21:58 112 H 08/11/25 21:58 134/77 08/11/25 21:57 95 08/11/25 21:57 112 H 08/11/25 21:57 111 H 08/11/25 21:57 134/70 08/11/25 21:54 110 H 08/11/25 21:54 136/71 08/11/25 21:52 97 08/11/25 21:52 103 H 08/11/25 21:47 96 08/11/25 21:47 98 H 08/11/25 21:42 97 08/11/25 21:42 111 H 08/11/25 21:42 136/81 08/11/25 21:37 99 08/11/25 21:37 97 H 08/11/25 21:32 98 08/11/25 21:32 100 H 08/11/25 21:27 98 08/11/25 21:27 103 H 08/11/25 21:27 107 H 08/11/25 21:27 146/78 H 08/11/25 21:22 98 08/11/25 21:22 98 H 08/11/25 21:17 98 08/11/25 21:17 104 H 08/11/25 21:13 105 H 08/11/25 21:13 149/95 H 08/11/25 21:12 98 08/11/25 21:12 103 H 08/11/25 21:07 98 08/11/25 21:07 92 H 08/11/25 21:02 99 08/11/25 21:02 104 H 08/11/25 20:57 98 08/11/25 20:57 101 H 08/11/25 20:57 105 H 08/11/25 20:57 141/84 H 08/11/25 20:52 98 08/11/25 20:52 92 H 08/11/25 20:47 98 08/11/25 20:47 107 H 08/11/25 20:42 99 08/11/25 20:42 101 H 08/11/25 20:42 112 H 08/11/25 20:42 137/81 08/11/25 20:38 92 08/11/25 20:38 118 H 08/11/25 20:37 97 08/11/25 20:37 124 H 08/11/25 20:32 99 08/11/25 20:32 90 08/11/25 20:27 99 08/11/25 20:27 93 H 08/11/25 20:27 98 H 08/11/25 20:27 122/73 08/11/25 20:22 97 08/11/25 20:22 95 H 08/11/25 20:17 100 08/11/25 20:17 96 H Coding Level of Care Code None
[2025-08-12] MEDS: LIDOCAINE 1% LOCAL 20 ML VIAL INFIL PRN (09:05)
--- NOTE | 2025-08-12 09:05 | Delivery Summary ---
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 Apgars: 8/9 . Weight pending, please see nursery records Estimated QBL: 323cc Description of delivery: The patient progressed to complete with epidural anesthesia. She then began to push. She spontaneously vaginally delivered a viable from the cephalic presentation. The head delivered in MERCEDES position. The anterior shoulder delivered, followed by the posterior shoulder, followed by the body. No nuchal. The baby was placed on mother's abdomen and a spontaneous cry was heard. Delayed cord clamping was employed, and the cord was doubly clamped and cut. Cord blood was obtained. The placenta was delivered spontaneously intact with a 3-vessel cord. The uterus and vagina were swept of clots and debris. IV pitocin was given. The uterus became firm. The cervix, vagina, and perineum were inspected. 1% lidocaine for local anesthetic. 2nd deg ree perineal laceration repaired with 3-0 Vicryl. Excellent hemostasis was observed. The mother and baby are recovering in stable and good condition in the room. Sponge, needle and instrument counts were correct x 2. Yasmine Abraham DO [facility] Vaginal Delivery Charge Vaginal Delivery Codes: 79174 global code for the antepartum, delivery, and post- Delivery Type Details: and 2nd Degree LAC
[2025-08-12] MEDS ORDERED: HYDROCORTISONE ACETATE 25 MG SUPP PR PRN (09:11)
[2025-08-12] MEDS ORDERED: DIPHTHER/TETAN/PERTUS Vaccine (Tdap, Adol/Adult) 0.5mL IM ONE (09:11)
[2025-08-12] MEDS ORDERED: OXYTOCIN 30 UNITS/NSS 30 UNITS/500 ML BAG IV PRN (09:11)
[2025-08-12] MEDS ORDERED: CALCIUM CARBONATE 500 MG CHEWABLE TAB PO PRN (09:32)
[2025-08-12] MEDS: IBUPROFEN 600 MG TAB PO PRN (09:55)
--- NOTE | 2025-08-12 10:17 | Anesthesia Procedure Note ---
Date of Service August 12, 2025 Anesthesia Post Epidural Note Vital Signs Vital Signs: Temp Pulse Resp BP Pulse Ox 36.9 C 106 H 22 134/78 99 08/12/25 07:16 08/12/25 09:49 08/12/25 07:16 08/12/25 09:49 08/12/25 08:32 Pain Intensity Lower Abdomen: Pain Intensity: 7 Back: Pain Intensity: 7 Notes Mental Status: alert / awake / arousable Nausea / Vomiting: adequately controlled Pain: adequately controlled Airway Patency, RR, SpO2: stable & adequate BP & HR: stable & adequate Hydration State: stable & adequate Neuraxial Anesthesia: was administered and sensory block is resolving Anesthetic Complications: no major complications apparent Epidural: Removed without complications and With tip intact
[2025-08-12] MEDS: BENZOCAINE 20% SPRY 85 APPLN/85 GM CAN EXT PRN (12:36)
[2025-08-12 16:55] VITALS: O2SAT 98
[2025-08-12] MEDS: DOCUSATE SODIUM 100 MG CAP PO SCH (20:58)
[2025-08-12] MEDS: ACETAMINOPHEN 325 MG TAB PO PRN (20:58)
[2025-08-13 06:01] VITALS: RESP 16; TEMP 97.5
--- NOTE | 2025-08-13 06:27 | Obstetrical Progress Note ---
Date of Service August 13, 2025 Assessment & Plan (1) examination following vaginal delivery: (2) Insulin controlled gestational diabetes mellitus (GDM) during : (3) Group B streptococcal infection during : (4) Chronic hypertension: Plan 25 y/o ppd #1 s/p . complicated by GDM on insulin, chronic HTN, and GBS(+). Feels well today. Vital signs stable Continue post- care Encourage ambulation and Pain controlled with ibuprofen Hgb stable Anticipate home discharge tomorrow, follow up with Dr. Briceno in 6 weeks. Admission and Anticipated Discharge Date Admission Date: August 11, 2025 Supervising Physician Co-Signing Physician Notes Resident Physician Supervision Note: I interviewed and examined the patient. Discussed with Dr. Bhatti and agree with findings and plan as documented in the note. Any exceptions or clarifications are listed here: PPD#1 doing well. Is interested in going home later today if doing well and if baby is discharged. Reviewed PP instructions. Followup 6w office. Documented By: Yasmine Abraham, DO Subjective 25 y/o ppd #1 s/p . complicated by GDM on insulin, CHTN, and GBS(+). Ambulation: ambulating normally Voiding: no voiding problems Passing Gas:: Yes Diet Tolerance:: regular diet Lochia:: Small Feeding Type:: breast feeding Current Pain Level: minimal - well controlled with tylenol/ibuprofen Resting comfortably this AM in NAD. Denies BRAND, CP, SOB, N/V/D, LE pain/swelling. Review of Systems Review of Systems: as above Physical Exam Physical Exam: General: patient resting comfortably, NAD, non-toxic in appearance, A&Ox4, answers questions appropriately. Skin: warm, dry, intact HEENT: NC/AT, anicteric sclera, conjunctiva without injection, moist mucus membranes. Heart: +S1/S2, regular, no m/r/g Lungs: equal air entry bilaterally, no rales/rhonchi/wheezes Abd: normal to inspection (patient working with /pumping at time of exam) Ext: warm, no clubbing/cyanosis or edema Neuro: no focal neurologic deficits, moving all extremities. Results & Data Vital Signs (Past 12 Hours) Vital Signs Temp Pulse Resp BP Pulse Ox O2 Del Method 08/13/25 03:00 36.4 C L 89 16 115/75 98 Room Air 08/12/25 23:00 36.5 C 102 H 18 111/72 98 Room Air 08/12/25 19:15 36.7 C 116 H 16 126/81 98 Room Air
[2025-08-13 07:08] LABS: Hematocrit (blood only) 32.7 % (37.0-47.0); Hemoglobin 10.8 g/dL (12.0-16.0); Mean Corpuscular Hemoglobin 27.0 pg (25.0-34.0); Mean Corpuscular Volume 81.8 fL (80.0-100.0); Platelet Count 250 K/uL (130-400); RDW Standard Deviation 42.7 fL (36.4-46.3); Red Blood Count 4.00 M/uL (4.20-5.40); White Blood Count 18.35 K/ul (4.8-10.8)
[2025-08-13] MEDS: PRENATAL VITAMIN 1 TAB PO SCH (07:40)
[2025-08-13 07:56] VITALS: PULSE 90
[2025-08-13 14:22] VITALS: BP 115/75
== END 2025-08-13 16:30 | disposition home or self-care (01) | DRG 806 ==
LOC: 4S1 07:43 → 4E2 08-12 12:25